=== PATIENT | male | born 1985 | race Two or more races ===

== ENCOUNTER → 2017-09-05 10:38 | Outpatient (CLI) | payer BC, SELFPAY ==
--- NOTE | 2017-09-05 10:48 | XR_ITS ---
XR chest 2V HISTORY: ITS.REASON: PERSISTENT COUGH,SHORTNESS OF BREATH ORDERING PHYSICIAN: Clara Santillan PATIENT AGE: 31 years COMPARISON: None available FINDINGS: The cardiomediastinal silhouette and pulmonary vascularity are within normal limits. The lungs are clear without infiltrates, suspicious nodules, or pleural effusions. No acute bony abnormalities. IMPRESSION: Negative chest, no acute finding
[2017-09-05 11:19] LABS: Alanine Aminotransferase 34 U/L (12-78); Albumin Level 4.7 gm/dL (3.4-5.0); Alkaline Phosphatase 109 U/L (46-116); Anion Gap 13.6 mEq/L (5-15); Aspartate Amino Transferase 20 U/L (15-37); Bilirubin,Total 0.7 mg/dL (0.2-1.0); Blood Urea Nitrogen 14 mg/dL (7-18); Carbon Dioxide 28 mmol/L (21.0-32.0); Chloride 102 mmol/L (98-107); Creatinine,Serum 0.82 mg/dL (0.70-1.30); Estimated Glomerular Filt Rate 108 ml/min (>60); GFR (African American) 131 ML/MIN (>60); Globulin 4.7 gm/dl (1.3-3.2); Glucose 117 mg/dL (74-106); Potassium 4.6 mmoL/L (3.5-5.1); Sodium 139 mmol/L (136-145); Thyroid Stimulating Hormone 1.27 uIU/ml (0.358-3.740); Total Protein,Serum 9.4 gm/dL (6.4-8.2)
[2017-09-05 12:27] LABS: Erythrocyte Sedimentation Rate 3 mm/hr (0-15)
== END ==
PROVIDERS: Visit Provider Nurse Practitioner Family
DX: R06.02 Shortness of breath (principal); R05 Cough; M12.9 Arthropathy, unspecified; J06.9 Acute upper respiratory infection, unspecified; Z00.00 Encounter for general adult medical examination without abnormal findings
CPT/HCPCS: 36415; 71046; 80053; 84443; 85651

== ENCOUNTER → 2018-02-05 16:16 | Outpatient (CLI) | payer BC, SELFPAY ==
[2018-02-05 16:19] LABS: Microscopic, Urine URINE MICROSCOPIC (MICROSCOPIC)
[2018-02-05 16:33] LABS: Basophils % 0.5 % (0.1-2.0); Eosinophils # 0.2 K/mm3 (0.0-0.4); Eosinophils % 2.1 % (0.1-12.0); Hematocrit 48.8 % (42.0-52.0); Hemoglobin 16.6 g/dL (14.1-18.0); Lymphocytes % 21.2 K/mm3 (10-50); Mean Corpuscular Hemoglobin 31.7 pg (27.0-31.2); Mean Corpuscular Volume 93.2 fl (80-94); Mean Platelet Volume 6.7 fl (7.4-10.4); Monocytes # 0.5 K/mm3 (0.1-1.0); Monocytes % 5.7 % (1.7-9.3); Neutrophils # 6.7 K/mm3 (1.8-7.8); Neutrophils % 70.6 % (37.0-80.0); Platelet Count 380 K/mm3 (142-424); Red Blood Count 5.23 M/mm3 (4.60-6.20); Red Cell Distribution Width 13.8 % (11.5-17.5); White Blood Count 9.5 K/mm3 (4.8-10.8)
[2018-02-05 16:36] LABS: Appearance,Urine CLEAR (Clear); Bilirubin,Urine Negative (Negative); Blood, Urine Negative (Negative); Color,Urine YELLOW (Yellow); Glucose,Urine (UA) Negative (Negative); Ketones,Urine Negative (Negative); Leukocyte Esterase,Urine Negative (Negative); Nitrate,Urine Negative (Negative); Protein,Urine Negative (Negative); Specific Gravity, Urine 1.025 (1.005-1.030); Urobilinogen,Urine 0.2 EU/dl (0.2)
[2018-02-05 16:47] LABS: Bacteria,Urine 1+ /lpf; RBC,Urine Occasional #/hpf (0-3)
[2018-02-05 17:12] LABS: Alanine Aminotransferase 42 U/L (12-78); Albumin Level 4.4 gm/dL (3.4-5.0); Alkaline Phosphatase 106 U/L (46-116); Amylase 98 U/L (25-125); Anion Gap 12.1 mEq/L (5-15); Bilirubin,Total 0.6 mg/dL (0.2-1.0); Blood Urea Nitrogen 16 mg/dL (7-18); Calcium 9.1 mg/dL (8.5-10.1); Carbon Dioxide 32 mmol/L (21.0-32.0); Chloride 101 mmol/L (98-107); Creatinine,Serum 1.09 mg/dL (0.70-1.30); Estimated Glomerular Filt Rate 77 ml/min (>60); GFR (African American) 94 ML/MIN (>60); Globulin 4.3 gm/dl (1.3-3.2); Glucose 114 mg/dL (74-106); Lipase 131 u/L (73-393); Sodium 141 mmol/L (136-145); Total Protein,Serum 8.7 gm/dL (6.4-8.2)
[2018-02-05 17:13] LABS: Potassium 4.1 mmoL/L (3.5-5.1)
[2018-02-05 17:14] LABS: Aspartate Amino Transferase 19 U/L (15-37)
== END ==
PROVIDERS: Visit Provider Nurse Practitioner Family
DX: R10.11 Right upper quadrant pain (principal); R30.0 Dysuria
CPT/HCPCS: 36415; 80053; 81001; 82150; 83690; 85025

== ENCOUNTER → 2018-02-06 08:35 | Outpatient (CLI) | payer BC, SELFPAY ==
--- NOTE | 2018-02-06 08:46 | US_ITS ---
US gallbladder HISTORY: ITS.REASON: RUQ PAIN ORDERING PHYSICIAN: Lashon Blackman PATIENT AGE: 32 years Comparison: None FINDINGS: PANCREAS: Unremarkable. No obvious mass or abnormal fluid collection. No ductal dilatation LIVER: No focal liver lesions demonstrated. Homogeneous echogenicity. No intrahepatic biliary ductal dilatation evident RIGHT KIDNEY: Unremarkable. Normal size and echogenicity. No hydronephrosis GALLBLADDER: No gallstones, gallbladder wall thickening, pericholecystic fluid, or biliary dilatation. There are at least 2 gallbladder wall polyps 4 mm each. No shadowing stones IMPRESSION: 1. No evidence of cholelithiasis. 2. Gallbladder polyps
== END ==
PROVIDERS: Family Provider Internal Medicine Adolescent Medicine; PCP Internal Medicine Adolescent Medicine; Visit Provider Nurse Practitioner Family
DX: R10.11 Right upper quadrant pain (principal)
CPT/HCPCS: 76705

== ENCOUNTER → 2018-04-24 12:50 | Outpatient (CLI) | payer BC, SELFPAY | PROVIDERS: PCP Internal Medicine Adolescent Medicine; Visit Provider Internal Medicine Adolescent Medicine | DX: R06.02 Shortness of breath (principal); R05 Cough ==

== ENCOUNTER → 2019-04-08 16:13 | Outpatient (CLI) | payer BC, SELFPAY ==
--- NOTE | 2019-04-08 16:21 | CT_ITS ---
PROCEDURE: CT ABDOMEN PELVIS WO CON CLINICAL HISTORY: Lower abdominal pain with dysuria, hematuria COMPARISON: No exams were available for comparison TECHNIQUE: Axial images obtained with sagittal and coronal reformats. All CT scans at the facility use one or more dose reduction, viz: automated exposure control, ma/kV adjustment per patient size (including targeted exams where dose is matched to indication, i.e. head), or iterative reconstruction technique. FINDINGS: Lung bases are clear. The liver, spleen, adrenal glands, pancreas, gallbladder, and kidneys have an unremarkable appearance. No intestinal obstruction or free air. No evidence of appendicitis. There are scattered colonic diverticula without diverticulitis. No renal or ureteral calculi. No pelvic mass abnormal fluid collection or focal inflammatory change of the pelvis unremarkable appearing urinary bladder. No acute bony anomaly. Small sclerotic focus involves the right femoral head medially and may represent a bone island. IMPRESSION: 1. No acute abdominal or pelvic findings. 2. Scattered colonic diverticulosis without diverticulitis. Dictated by: Ricky Malcolm MD 04/09/2019 03:42 Electronically signed by Ricky Malcolm MD in [place] 04/09/2019 03:42
== END ==
PROVIDERS: PCP Internal Medicine Adolescent Medicine; Visit Provider Internal Medicine Adolescent Medicine
DX: R30.0 Dysuria (principal); R31.29 Other microscopic hematuria
CPT/HCPCS: 74176

== ENCOUNTER 2020-07-25 12:37 | Emergency (ER) | payer BC, SELFPAY ==
[2020-07-25 12:40] VITALS: BP 141/92; PULSE 98; RESP 14; TEMP 37; O2SAT 96; BMI 25.5
--- NOTE | 2020-07-25 13:00 | XR_ITS ---
PROCEDURE: XR CHEST 2V Referring Doctor: Bernadette Romero Patient Age:34Y CLINICAL HISTORY: SOA PA and lateral chest is compared to previous study from August 2017. . COMPARISON: CR CXR2V XR chest 2V from 09/05/2017 FINDINGS: The lungs remain well expanded and clear with nothing definitely acute. No focal pneumonia. The the central markings are questionably slightly accentuated which could reflect bronchitis but this equivocal with overall nothing definitely acute. Heart jesus and mediastinal structures satisfactory. The very subtle patchy area of density at projected over the right anterior 4th rib with seen on previous studies. No pleural effusion or pneumothorax. Chest wall in T-spine . IMPRESSION: Stable chest with nothing definitely acute Dictated by: Brady Brody MD 07/26/2020 07:43 Brady Brody MD in [place] 07/26/2020 07:43
--- NOTE | 2020-07-25 13:29 | HMH.EDUTC ---
[facility] Disposition Clinical Impression: Acute bronchitis Qualifiers: Bronchitis organism: unspecified organism Qualified Code(s): J20.9 - Acute bronchitis, unspecified Disposition: Home, Self-Care Condition on Discharge: Good Instructions: Acute Bronchitis Additional Instructions: Start antibiotic today. Be sure to complete entire prescription even if feeling better Tylenol and ibuprofen as needed for pain or fever Humidifier/vaporizer/hot steamy shower Follow-up with primary care on monday. Follow-up immediately in the ER of the [facility] for new or worsening symptoms or no noticeable improvement over the next 48-72 hours. Stop smoking Inhaler every 4-6 hours as needed. Should help open airways improved cough, wheezing, shortness of breath Ellie Roblero will not cause drowsiness to use at bedtime to help stop cough so that she can get some sleep Start steroids today. Helps with inflammation therefore coughing and wheezing. Follow directions on package. Patient states they have taken them before. Prescriptions: predniSONE [Prednisone 20mg Tab] 20 mg PO BID #10 tab Prescription Printed Azithromycin [Zithromax 250mg tab] 250 mg PO DIRECTED #6 tab Prescription Printed Referrals: Thierry Hamlin MD [Primary Care Provider] - Time of Disposition: 13:40 Medical Decision Making - Moises Inquiry Pt receiving controlled substance: No Vital Signs: 07/25/20 12:40 Temperature 98.6 F Temperature Source Oral Pulse Rate [Right Brachial] 98 H Respiratory Rate 14 Blood Pressure [Right Arm] 141/92 H Blood Pressure Mean [Right Arm] 108 Blood Pressure Source [Right Arm] Automatic Cuff Blood Pressure Position [Right Arm] Sitting 02 Sat by Pulse Oximetry 96 Oxygen Delivery Method Room Air Orders (Tests/Meds): ORDERS Category Date Time Status Chest XR 2 view (NOT portable) [XR chest 2V] Stat Exams 07/25/20 13:00 Taken [facility] HPI - General Chief complaint: Urgent Treatment Center Stated complaint: Cough;Congestion;SOA;Asthmatic Time Seen by Provider: 07/25/20 13:29 Mode of Arrival: Ambulatory Source of Information: Patient Limitations: No Limitations Description of Symptoms (Recalled from Triage Doc. by RN): PATIENT C/O DIFFICULTY BREATHING, COUGH, CONGESTION AND BACK PAIN; HAS HX OF ASTHMA HEENT Symptoms (Recalled from RN notes): No Resp Symptoms (Recalled from RN notes): Yes Skin Symptoms (Recalled from RN notes): No MS Symptoms (Recalled from RN notes): No Functional Status (Recalled from RN notes): WNL - History of Present Illness Provider Complaint: 34 yr old male presents for coughing,wheezing,back pain and increase soa for 2 days pt states hx of penumonia - Related Data Previous Rx's Medication Instructions Recorded Azithromycin [Zithromax 250mg 250 mg PO DIRECTED #6 tab 07/25/20 tab] predniSONE [Prednisone 20mg 20 mg PO BID #10 tab 07/25/20 Tab] Allergies Allergy/AdvReac Type Severity Reaction Status Date / Time No Known Allergies Allergy Verified 05/16/19 12:30 - Worker's Comp Is this a Worker's Comp case?: No [facility] History - Hepatitis A Screen Drug use history?: No High risk sexual behaviors?: No History of sexually transmitted infection?: No Currently employed?: No Childcare worker?: No Do you have indoor plumbing?: Yes Do you have electricity?: Yes Attestation statement:: This patient has been screened for Hepatitis A risk factors. I have reviewed the patient's past medical history: Yes - Social History Smoking Status: Never smoker Alcohol Intake: never Occupational Status: other ROS Obtained: Yes Systems reviewed as appropriate & no additional complaints - Constitutional Constitutional: Reports system reviewed and no additional complaints, except as docu, Denies fever(s) - Eyes Eyes: Reports system reviewed and no additional complaints, except as docu, Denies dry eyes - ENT Ears, Nose, Mouth, and Throat: Reports system reviewed
[2020-07-25 13:45] VITALS: BP 141/92; PULSE 98; RESP 14; TEMP 37; O2SAT 96
== END 2020-07-25 13:48 | disposition home or self-care (01) ==
PROVIDERS: Emergency Provider Nurse Practitioner Family; PCP Internal Medicine Adolescent Medicine
DX: J20.9 Acute bronchitis, unspecified (principal); J45.909 Unspecified asthma, uncomplicated
CPT/HCPCS: 71046; 99202; G0463

== ENCOUNTER 2020-11-06 14:28 | Emergency (ER) | payer BC, SELFPAY ==
[2020-11-06 14:43] VITALS: BP 152/80; PULSE 89; RESP 19; TEMP 36.7; O2SAT 99; BMI 27.8
[2020-11-06 14:54] VITALS: BP 152/80; PULSE 89; RESP 19; TEMP 36.7; O2SAT 99
--- NOTE | 2020-11-06 15:11 | HMH.EDUTC ---
[facility] [place] Disposition Clinical Impression: Abscess, Enlarged lymph nodes in armpit Disposition: Home, Self-Care Condition on Discharge: Good Instructions: DI for Skin Abscess Additional Instructions: keep area clean and dry take antibiotics as ordered follow up with pcp warm compress as needed Prescriptions: Sulfamethoxazole/Trimethoprim [Bactrim DS tablet] 1 each PO BID 10 Days #20 tab Transmission Status: Pending to [facility] Referrals: Gurpreet Jacobsen MD [Primary Care Provider] - Time of Disposition: 15:29 Medical Decision Making - Moises Inquiry Pt receiving controlled substance: No Vital Signs: 11/06/20 14:43 11/06/20 14:54 Temperature 98.1 F 98.1 F Temperature Source Oral Pulse Rate 89 Pulse Rate [Left] 89 Respiratory Rate 19 19 Blood Pressure 152/80 H Blood Pressure [Right Arm] 152/80 H Blood Pressure Mean [Right Arm] 104 02 Sat by Pulse Oximetry 99 [facility] HPI - General Chief complaint: Urgent Treatment Center Stated complaint: lump on side of jaw Time Seen by Provider: 11/06/20 15:20 Mode of Arrival: Family Vehicle Source of Information: Patient Limitations: No Limitations Description of Symptoms (Recalled from Triage Doc. by RN): Abscess on left cheek from pimple. Pt states that he has a knot under his left arm since he had his Covid shot. HEENT Symptoms (Recalled from RN notes): No Resp Symptoms (Recalled from RN notes): No Skin Symptoms (Recalled from RN notes): Yes MS Symptoms (Recalled from RN notes): No Functional Status (Recalled from RN notes): wnl - History of Present Illness Provider Complaint: 35 yr old male presents for a sore on cheek and a lymph node under left arm swollen since receiving covid vaccine. pt states daughter had mrsa 2 weeks ago. - Related Data Previous Rx's Medication Instructions Recorded Azithromycin [Zithromax 250mg 250 mg PO DIRECTED #6 tab 07/25/20 tab] predniSONE [Prednisone 20mg 20 mg PO BID #10 tab 07/25/20 Tab] Sulfamethoxazole/Trimethoprim 1 each PO BID 10 Days #20 tab 11/06/20 [Bactrim DS tablet] Allergies Allergy/AdvReac Type Severity Reaction Status Date / Time No Known Allergies Allergy Verified 11/06/20 14:54 - Worker's Comp Is this a Worker's Comp case?: No [facility] History - Hepatitis A Screen Drug use history?: No High risk sexual behaviors?: No History of sexually transmitted infection?: No Currently employed?: No Childcare worker?: No Do you have indoor plumbing?: Yes Do you have electricity?: Yes Attestation statement:: This patient has been screened for Hepatitis A risk factors. I have reviewed the patient's past medical history: Yes - Social History Smoking Status: Never smoker Alcohol Intake: never Occupational Status: other ROS Obtained: Yes Systems reviewed as appropriate & no additional complaints - Constitutional Constitutional: Reports system reviewed and no additional complaints, except as docu, Denies fever(s) - Eyes Eyes: Reports system reviewed and no additional complaints, except as docu, Denies dry eyes - ENT Ears, Nose, Mouth, and Throat: Reports system reviewed and no additional complaints, except as docu, Denies otalgia, Denies sore throat - Cardiovascular Cardiovascular: Reports system reviewed and no additional complaints, except as docu, Denies chest pain - Respiratory Respiratory: Reports system reviewed and no additional complaints, except as docu, Denies cough - Gastrointestinal Gastrointestingal: Reports: system reviewed and no additional complaints, except as docu. Denies: nausea, vomiting - Genitourinary Male Genitourinary: Reports system reviewed and no additional complaints, except as docu - Musculoskeletal Musculoskeletal: Reports system reviewed and no additional complaints, except as docu, Denies joint pain - Integumentary/Breasts Skin/Breast: Reports system reviewed and no additional complaints, except as docu, Reports as pe
== END 2020-11-06 15:38 | disposition home or self-care (01) ==
PROVIDERS: Emergency Provider Nurse Practitioner Family; PCP Internal Medicine Adolescent Medicine
DX: L02.01 Cutaneous abscess of face (principal); R59.0 Localized enlarged lymph nodes
CPT/HCPCS: 10060; 96372; 99202; G0463

== ENCOUNTER → 2021-06-15 14:59 | Outpatient (CLI) | payer BC, SELFPAY ==
[2021-06-15 15:20] LABS: Basophils # 0.1 K/mm3 (0-0.2); Basophils % 0.6 % (0.1-2.0); Eosinophils # 0.3 K/mm3 (0.0-0.4); Eosinophils % 2.4 % (0.1-12.0); Hematocrit 48.8 % (42.0-52.0); Hemoglobin 17.2 g/dL (14.1-18.0); Lymphocytes # 1.6 K/mm3 (0.7-4.5); Lymphocytes % 15.3 % (10-50); Mean Corpuscular HGB Conc 35.3 g/dL (31.8-35.4); Mean Corpuscular Volume 90.7 fl (80-94); Mean Platelet Volume 7.1 fl (7.4-10.4); Monocytes # 0.5 K/mm3 (0.1-1.0); Monocytes % 4.3 % (1.7-9.3); Neutrophils # 8.1 K/mm3 (1.8-7.8); Neutrophils % 77.4 % (37.0-80.0); Platelet Count 409 K/mm3 (142-424); Red Blood Count 5.38 M/mm3 (4.60-6.20); Red Cell Distribution Width 13.4 % (11.5-17.5); White Blood Count 10.5 K/mm3 (4.8-10.8)
[2021-06-15 15:53] LABS: Chloride 100 mmol/L (98-107); Potassium 4.7 mmoL/L (3.5-5.1); Sodium 140 mmol/L (136-145)
[2021-06-15 15:56] LABS: Alanine Aminotransferase 43 U/L (12-78); Albumin Level 5.1 g/dl (3.5-5.0); Albumin/Globulin Ratio 1.5 (1.1-1.8); Alkaline Phosphatase 97 U/L (38-126); Anion Gap 16.7 mEq/L (5-15); Aspartate Amino Transferase 48 U/L (17-59); Bilirubin,Total 0.6 mg/dl (0.2-1.3); Blood Urea Nitrogen 16 mg/dl (9-20); Calcium 9.6 mg/dl (8.4-10.2); Carbon Dioxide 28 mmol/L (22.0-30.0); Estimated Glomerular Filt Rate 109 ml/min (>60); GFR (African American) 132 ML/MIN (>60); Globulin 3.4 g/dL (1.3-3.2); Glucose 107 mg/dl (74-100); Lipase 58 U/L (23-300); Total Protein,Serum 8.5 g/dl (6.3-8.2)
== END ==
PROVIDERS: Visit Provider Internal Medicine Adolescent Medicine
DX: R10.11 Right upper quadrant pain (principal)
CPT/HCPCS: 36415; 80053; 83690; 85025

== ENCOUNTER → 2021-07-27 07:36 | Outpatient (CLI) | payer BC, SELFPAY ==
--- NOTE | 2021-07-27 07:43 | US_ITS ---
FINAL REPORT CLINICAL HISTORY: RUQ PAIN FINDINGS: ULTRASOUND RIGHT UPPER QUADRANT Sonographic imaging of the right upper quadrant was obtained. The pancreas is partially obscured, but the portion that is seen is unremarkable. The liver is unremarkable. There is sludge with probable small polyps in the gallbladder with no evidence of gallstones. There is no gallbladder wall thickening. There is no biliary ductal dilatation. The common duct is normal at 3 mm. Limited images of the right kidney are unremarkable. IMPRESSION: Sludge with probable small polyps in the gallbladder. No evidence of gallstones. Reviewed, Interpreted and Dictated by Sarath Garcia III, MD Transcribed by Alison Martinez Authenticated by Sarath Garcia III, MD on 07/27/2021 10:18:49 AM [facility]
== END ==
PROVIDERS: PCP Internal Medicine Adolescent Medicine; Visit Provider Internal Medicine Adolescent Medicine
DX: R10.11 Right upper quadrant pain (principal)
CPT/HCPCS: 76705

== ENCOUNTER → 2021-09-03 14:19 | Outpatient (CLI) | payer BC, SELFPAY ==
[2021-09-03 14:47] LABS: Basophils # 0.1 K/mm3 (0-0.2); Basophils % 1.3 % (0.1-2.0); Eosinophils # 0.3 K/mm3 (0.0-0.4); Eosinophils % 3.8 % (0.1-12.0); Hematocrit 45.7 % (42.0-52.0); Hemoglobin 15.6 g/dL (14.1-18.0); Lymphocytes # 1.9 K/mm3 (0.7-4.5); Lymphocytes % 24.1 % (10-50); Mean Corpuscular Hemoglobin 31.5 pg (27.0-31.2); Mean Corpuscular Volume 92.7 fl (80-94); Mean Platelet Volume 7.4 fl (7.4-10.4); Monocytes # 0.4 K/mm3 (0.1-1.0); Monocytes % 5.6 % (1.7-9.3); Neutrophils # 5.2 K/mm3 (1.8-7.8); Neutrophils % 65.3 % (37.0-80.0); Platelet Count 414 K/mm3 (142-424); Red Blood Count 4.93 M/mm3 (4.60-6.20); Red Cell Distribution Width 13.7 % (11.5-17.5)
[2021-09-03 15:48] LABS: Alanine Aminotransferase 33 U/L (12-78); Albumin Level 4.9 g/dl (3.5-5.0); Albumin/Globulin Ratio 1.6 (1.1-1.8); Alkaline Phosphatase 88 U/L (38-126); Amylase 89 U/L (30-110); Anion Gap 14.5 mEq/L (5-15); Aspartate Amino Transferase 39 U/L (17-59); Bilirubin,Total 0.7 mg/dl (0.2-1.3); Blood Urea Nitrogen 19 mg/dl (9-20); Calcium 9.2 mg/dl (8.4-10.2); Carbon Dioxide 25 mmol/L (22.0-30.0); Chloride 105 mmol/L (98-107); Estimated Glomerular Filt Rate 95 ml/min (>60); GFR (African American) 115 ML/MIN (>60); Globulin 3.1 g/dL (1.3-3.2); Glucose 92 mg/dl (74-100); Lipase 88 U/L (23-300); Potassium 4.5 mmoL/L (3.5-5.1); Sodium 140 mmol/L (136-145)
== END ==
PROVIDERS: Visit Provider Surgery
DX: Z01.812 Encounter for preprocedural laboratory examination (principal); Z11.52 Encounter for screening for COVID-19; K82.9 Disease of gallbladder, unspecified
CPT/HCPCS: 36415; 80053; 82150; 83690; 85025; C9803; U0003; U0005

== ENCOUNTER 2021-09-06 09:32 | Day surgery (SDC) | payer BC, SELFPAY ==
[2021-09-01 10:02] VITALS: BMI 24.3
[2021-09-06] VITALS (12 sets, daily range): BP systolic 123–170; BP diastolic 86–96; PULSE 60–79; RESP 16–18; TEMP 36.6–43; O2SAT 95–99
--- NOTE | 2021-09-06 10:37 | HMH.ANESCL ---
[facility] Anesthesia Checklist - Patient Identification Patient Identification: Arm Band, Verbal (Name & ) - Structural Data Admitted From: Home Planned Operative Procedure/s: Laparoscopic Cholecystectomy Consent for Planned Operative Procedure(s) Verified: Yes Verified Documents: Surgical Consent - NPO Status Verified Time NPO: 19:00 - Chart Verification Results Verified: CBC, BMP - Additional verifications Anesthesia Reactions: No Hx Blood Transfusions: No Blood Transfusion Reaction: No - Airway Assessment C-Spine Mobility Assessed: Yes TMJ Mobility Assessed: Yes Dentition: Good Dentition - Neurological Assessment Level of Consciousness: Awake, Alert, Appropriate - Anesthesia Plan Anesthesia Risk discussed: Yes ASA Class: II Anesthesia Type: General [facility] History I have reviewed the patient's past medical history: Yes Medical History: Reports:: Asthma Denies:: Cancer, Diabetes Mellitus Type 1, Diabetes Mellitus Type 2, Internal Pacemaker, MRSA, Seizures *Have you ever received a pneumonia vaccine?: No *Have you received a flu vaccine this season?: Yes Other Medical History: Denies: Blood Transfusion Reaction Anesthesia experience/problems:: none Other Surgeries: Yes: No Previous Surgery. No: Pacemaker Amputation: No Fractures: No - *Social History Last grade of school completed: High school graduate Smoking Status: Never smoker Alcohol Intake: never Substance Use Type: denies use *Occupational Status:: employed *Travel in the last 8 weeks: None Family Hx:: No significant family history
--- NOTE | 2021-09-06 12:13 | P.OP_ITS ---
Date of procedure: 09/06/21 Pre-op Diagnosis:: Gallbladder disease Post-op Diagnosis:: Same Procedure performed:: Laparoscopic cholecystectomy Surgeon:: Sarath Santa MD FUSING LINE INSPECTOR:: Jimi Tejeda Anesthesia: GETJr Estimated blood loss (mL): 15 Clinical Note:: Patient is a 35-year-old male referred by Dr. Hamlin for gallbladder. He states that he has had some problems with right upper quadrant pain for about 10 or 12 years. It has been somewhat intermittent. He does have some associated heartburn symptoms. The pain is often different in character. He has developed some radiation around to his back. He has felt often the need to vomit. He feels bloated and has a lot of belching and burping. His symptoms seem to be worse postprandially after spicy foods. He has seen a specialist in [facility]. He has previously had EGD and colonoscopy. He has been on various medication which has not helped. He und erwent gallbladder ultrasound which reveals sludge and gallbladder polyps. Patient works on a horse farm. Given patient's symptoms and prior evaluation with thorough work-up by gastroenterology I do feel that it is rather likely that etiology of his symptoms is his gallbladder. I discussed the options with him. He would like to pursue surgery. Plan will be for laparoscopic with possibly open cholecystectomy. Operative findings:: He had a somewhat distended mildly thickened gallbladder. He had hepatomegaly. Operative note:: Patient was taken to the operating room. He was given preoperative intravenous antibiotics. In the operating room he was placed in a supine position. General anesthesia was induced via endotracheal tube. His abdomen was prepped and draped in the standard surgical fashion. Subumbilical skin incision was made. While performing abdominal wall lift Veress needle was inserted. CO2 pneumoperitoneum was achieved to 15 mmHg. 11 mm optical trocar was inserted the umbilicus. Intraperitoneal contents were visualized. He was positioned in reverse Trendelenburg left side down. A couple of 5 mm trochars were inserted in the right upper abdomen. 10 mm trocar was inserted in the epigastrium. He did have some hepatomegaly. Liver was elevated. Gallbladder was identified. It was retracted anteriorly. There was a significant amount of fatty infiltration around the neck of the gallbladder and dmitry hepatis. Blunt dissection was carried out the neck of the gallbladder ultimately identifying the cystic duct and cystic artery. Cystic duct was isolated. Cystic duct was multiply clipped and sharply divided. Cystic artery was carefully coagulated with GENNA ultrasonic harmonic kwaku. Gallbladder was dissected free from the liver in a retrograde fashion using GENNA ultrasonic harmonic kwaku. Gallbladder was placed within an Endo Catch retrieval device and removed from the peritoneal cavity via the umbilical trocar site. Limited irrigation was performed of the gallbladder fossa and perihepatic space. There was good hemostasis. Trochars were removed as CO2 pneumoperitoneum was evacuated. Fascia at the umbilicus was closed with a couple of interrupted 0 Vicryl sutures. Local anesthetic was infiltrated. Skin incisions were closed with 4-0 Monocryl in a subcuticular fashion. Steri-Strips and dressings were applied. Condition: stable Disposition: PACU Specimens:: Gallbladder and contents Complications:: None immediately apparent
--- NOTE | 2021-09-06 12:22 | HMH.ANESI ---
[facility] Anesthesia Record Part I Intake, IV Amount: 1,200 Estimated blood loss (mL): 10 Urine output (mL): 0 Blood Pressure: 152/90 SaO2: 97 Pulse Rate: 66 Respiratory Rate: 16 Temperature: 97.8 F Patient is:: Drowsy, Stable Stable to PACU at:: 12:20
--- NOTE | 2021-09-06 18:24 | P.PN_ITS ---
[facility] Anesthesia Record Part II Discharge Time: 12:50 Destination: Home PACU nurse assessment reviewed?: Yes Patient Condition:: Good Anesthesia Complications:: None none Swallowing reflex intact?: Yes Cyanosis?: No Blood Pressure: 135/96 Pulse Rate: 63 Temperature: 97.8 F Mental Status: Alert & Oriented Pain level:: 0 Nausea and/or vomitting:: None Intake, IV Amount: 0
== END 2021-09-06 13:37 | disposition home or self-care (01) ==
LOC: OR 09:34
PROVIDERS: PCP Internal Medicine Adolescent Medicine; Visit Provider Surgery
PROC: 0FT44ZZ Resection of Gallbladder, Percutaneous Endoscopic Approach (ICD-10-PCS; CPT 47562; principal; 2021-09-06 11:30)
DX: K81.1 Chronic cholecystitis (principal); J45.909 Unspecified asthma, uncomplicated; Z79.899 Other long term (current) drug therapy
CPT/HCPCS: 47562; 96374; J2405; J2710

== ENCOUNTER 2023-03-30 08:20 | Day surgery (SDC) | payer BC, SELFPAY ==
[2023-03-14 11:26] VITALS: BMI 28.5
[2023-03-30] VITALS (7 sets, daily range): BP systolic 95–146; BP diastolic 62–93; PULSE 62–81; RESP 16–18; TEMP 36.4–37.1; O2SAT 95–98
--- NOTE | 2023-03-30 09:22 | P.PNANES_ITS ---
[facility] Disclaimer: The information contained in this section may have been updated after the patient was seen, as this information can be updated by other users. Medical History Allergies Asthma History of gastroesophageal reflux (GERD) Surgical History History of cholecystectomy History of colonoscopy Hx of eye surgery Family History Other No significant family history Social History Smoking Status: Never smoker second hand exposure: No alcohol intake: never substance use type: denies use current occupational status: employed Travel in the last 8 weeks: None household members: spouse housing: house caffeine: Yes [facility] Anesthesia Checklist Patient Identification Patient Identification: Arm Band and Verbal (Name & ) Structural Data Admitted From: Home Planned Operative Procedure/s: colonoscopy Consent for Planned Operative Procedure(s) Verified: Yes NPO Status Verified Time NPO: 00:00 Additional verifications Anesthesia Reactions: No Hx Blood Transfusions: No Blood Transfusion Reaction: No Airway Assessment Mallampati Score:: Class II C-Spine Mobility Assessed: Yes TMJ Mobility Assessed: Yes Dentition: Dentures-good fit Neurological Assessment Level of Consciousness: Awake Hx Seizures: No Numbness or tingling in extremities: No Anesthesia Plan Anesthesia Risk discussed: Yes Anesthesia Plan: Verified ASA Class: II Anesthesia Type: MAC
--- NOTE | 2023-03-30 09:41 | HMH.SCOPE ---
Procedure: Date: 03/30/23 Patient Date of :: 1985 Procedure Performed:: Screening colonoscopy Indications:: History of polyps, change in bowel habits Performing Provider:: Bashir Graves MD Referring Provider:: Gurpreet Jacobsen MD Sedation:: Propofol Procedure:: After placing the patient in the left lateral decubitus position, the colonoscopy was gently inserted into the rectum and under direct visualization advanced to the cecum which was identified by transillumination in the right lower quadrant, identification of the ileocecal valve, appendiceal orifice, and cecal strap. Color, texture, mucosa, and anatomy of the colon were carefully examined with the scope. Findings:: Anal canal: normal Rectum: normal Sigmoid colon: normal without polyps or inflammatory changes Descending colon: normal without polyps or inflammatory changes Splenic flexure: normal Transverse colon: normal without polyps or inflammatory changes Hepatic flexure: normal Ascending colon: normal without polyps or inflammatory changes Cecum: normal Terminal ileum: not visualized Impression: Normal colonoscopy. Symptoms suggestive of IBS Recommendations:: Follow up examination in about FIVE years or so, sooner if clinically indicated in view of history of polyps Complications:: None Estimated blood obtained (mL): 0 Colonoscopy Component Colonoscopy Component Was a colonoscopy performed during today's procedure?: Yes Recommended follow up colonoscopy of at least 10 years?: No If no, follow up colonoscopy recommended in ___ years?: Five Reason for not recommending >/= 10 yr follow-up interval?: As noted on recommendations
--- NOTE | 2023-03-30 10:12 | HMH.SCOPE ---
Procedure: Date: 03/30/23 Patient Date of :: 1985 Procedure Performed:: Diagnostic EGD Indications:: Chronic GERD, Belching Performing Provider:: Bashir Graves MD Referring Provider:: Janet Graves APRN Sedation:: Propofol Procedure:: The gastroscope was gently passed through the incisoral orifice into the oral cavity and under direct visualization the esophagus was intubated. The endoscope was passed down the esophagus, through the stomach, and into the duodenum. Color, texture, mucosa, and anatomy of the esophagus, stomach, and duodenum were carefully examined with the scope. Findings:: Oropharynx: normal Esophagus: normal EG Junction: intact at 40 cm Cardia: normal Fundus: normal Body: normal Antrum: normal Duodenal bulb: normal Duodenum (second and third portion): normal Impression: Normal EGD. No evidence of ulcer disease or hiatus hernia. Recommendations:: PPI therapy for symptmatic control. Life style modifications. Complications:: None Estimated blood obtained (mL): 0 Colonoscopy Component Colonoscopy Component Was a colonoscopy performed during today's procedure?: No
--- NOTE | 2023-03-30 10:14 | HMH.SCOPE ---
Procedure: Date: 03/30/23 Patient Date of :: 1985 Procedure Performed:: Screening colonoscopy Indications:: Screening and recent rectal bleed Performing Provider:: Bashir Graves MD Referring Provider:: Janet Graves APRN Sedation:: Propofol Procedure:: After placing the patient in the left lateral decubitus position, the colonoscopy was gently inserted into the rectum and under direct visualization advanced to the cecum which was identified by transillumination in the right lower quadrant, identification of the ileocecal valve, appendiceal orifice, and cecal strap. Color, texture, mucosa, and anatomy of the colon were carefully examined with the scope. Findings:: Anal canal: normal Rectum: normal, minor hemorrhoid with evidence of recent bleed Sigmoid colon: normal without polyps or inflammatory changes Descending colon: normal without polyps or inflammatory changes Splenic flexure: normal Transverse colon: normal without polyps or inflammatory changes Hepatic flexure: normal Ascending colon: normal without polyps or inflammatory changes Cecum: normal Terminal ileum: not visualized Impression: Normal colonoscopy Recommendations:: Follow up examination in about TEN years or so, sooner if clinically indicated. Complications:: None Estimated blood obtained (mL): 0 Colonoscopy Component Colonoscopy Component Was a colonoscopy performed during today's procedure?: Yes Recommended follow up colonoscopy of at least 10 years?: Yes
== END 2023-03-30 10:29 | disposition home or self-care (01) ==
PROVIDERS: PCP Internal Medicine Adolescent Medicine; Visit Provider Internal Medicine Gastroenterology
PROC: (CPT 45378; principal; 2023-03-30 09:30)
DX: Z12.11 Encounter for screening for malignant neoplasm of colon (principal); Z86.010 Personal history of colon polyps; K21.9 Gastro-esophageal reflux disease without esophagitis; R14.2 Eructation; K64.8 Other hemorrhoids
CPT/HCPCS: 45378; 43235

== ENCOUNTER 2023-08-18 08:57 | Outpatient (CLI) | payer BC, SELFPAY ==
--- NOTE | 2023-08-18 09:02 | US_ITS ---
FINAL REPORT CLINICAL HISTORY: ELEVATED AMYLASE COMPARISON: 07/27/2021 FINDINGS: Sonographic images of the abdomen were obtained. The liver has an unremarkable appearance with normal echogenicity. The gallbladder has been surgically resected. There is no evidence of biliary ductal dilatation. The common hepatic duct measures 5 mm, which is within normal limits. The pancreas was difficult to visualize on this exam and is obscured by overlying bowel gas. The spleen size is normal. The right kidney measures 10.2 in length. The left kidney measures 11.5 in length. There is normal renal echogenicity. There is no evidence of hydronephrosis. The aorta has an unremarkable appearance. Limited images of the inferior vena cava are unremarkable. IMPRESSION: Pancreas not well-seen secondary to overlying bowel gas. Prior cholecystectomy without evidence of biliary ductal dilatation. Reviewed, Interpreted and Dictated by Dereje Douglass MD Transcribed by Luzma Daniel Authenticated and [facility]
== END 2023-08-18 23:59 ==
LOC: RAD 08:57
PROVIDERS: PCP Internal Medicine Adolescent Medicine; Visit Provider Nurse Practitioner Family
DX: R74.8 Abnormal levels of other serum enzymes (principal)
CPT/HCPCS: 76700